=== PATIENT | female | born 1965 | race Caucasian/White ===

== ENCOUNTER 2016-12-22 12:28 | Day surgery (SDC) | payer MEDICARE, OTHER ==
[~2016-12-22] VITALS: Ht 172.7 cm; Wt 97.2 kg
[~2016-12-22 12:28] MED LIST: CALC600T11 PO; DEXL60CA2; ESZO3TAB12 PO; FLUT16SP24 NASAL; HYDR-762 PO; LINA290C PO; MULT-552 PO; NIT4 SL; OMEG-135 PO; PRAV20TA63 PO; RANI300C7 PO; SUCR1TAB PO; TRAM50TA2
[2016-12-22] MEDS ORDERED: FLUT9.9S NASAL (13:37)
[2016-12-22] MEDS ORDERED: LORA10CA PO (13:37)
[2016-12-22] MEDS ORDERED: AEROBID INH (13:42)
[2016-12-22] MEDS ORDERED: LEVO25TA59 PO (13:42)
[2016-12-22] MEDS ORDERED: VIT D3 PO (13:42)
[2016-12-22] MEDS ORDERED: CANA1000R PR (13:42)
[2016-12-22] MEDS ORDERED: HYDR25CA98 PO (13:42)
[2016-12-22 13:49] VITALS: Ht 172.7 cm; Wt 97.2 kg
[2016-12-22 16:00] VITALS: BP 148/72; PULSE 48; RESP 17
[2016-12-22] MEDS ORDERED: PROPOFOL 60 ML ONE (16:20)
[2016-12-22] MEDS ORDERED: LIDOCAINE 2% (SDV) 5 ML INJ ONE (16:20)
[2016-12-22 17:29] VITALS: BP 132/64; PULSE 60; RESP 22
--- NOTE | 2016-12-25 03:52 | GILP ---
DATE OF PROCEDURE: 12/22/2016 NAME OF PROCEDURE: Colonoscopy with polyp ablation. SURGEON: Sana Montgomery MD. BRIEF HISTORY AND INDICATIONS: The patient here for history of colonic polyps. PREMEDICATION: Monitored anesthesia care by anesthesiologist. INSTRUMENT USED: Olympus colonoscope. PREPARATION: Adequate. TECHNIQUE: After informed consent, with the patient/relatives understanding the procedure, its indic ations potential risks and complications, including but not limited to: allergic reaction, bleeding, perforation, infection, missed lesions and after all pertinent questions were answered to the patie nt's satisfaction, the patient/relatives signed the witnessed informed consent. Following this, premedication was administered slowly IV push by under careful cardiovascular and re spiratory monitoring with pulse oximetry, automatic blood pressure and line construction supervisor. Once the sedativ e effect was achieved, the patient was placed in the left lateral decubitus position, digital rectal examination was performed. The colonoscope was then introduced and advanced under visual control th roughout all segments of the colon including: the rectum, sigmoid, descending colon, splenic flexure , transverse colon, hepatic flexure, ascending colon and finally reaching the cecum which was clearl y identified by transillumination, finger indentation and the ileocecal valve. Careful examination o f the mucosa of the lower gastrointestinal tract both on insertion as well as withdrawal of the inst rument disclosed the following findings: Rectal Examination: No evidence of perirectal disease, no masses. Colonic Mucosa: The colonic mucosa is remarkable for the presence of 4 small 3 mm polyps in the rect um which were completely ablated by biopsy forceps. Two additional small polyps measuring mm were noted in the sigmoid were also ablated with biopsy forceps. The remainder of colonic mucosa is unremarkable. The ileocecal valve was clearly identified and appears unremarkable. The instrument was withdrawn reexamining the mucosa in detail. No additional abnormalities are noted with the exc eption of moderate sized internal hemorrhoids. IMPRESSION: 1. Two small polyps in the sigmoid colon, 3 mm each, ablated. 2. Four small polyps, 3 mm each in the rectum, ablated. 3. Moderate sized internal hemorrhoids. PLAN: The patient will follow up as an outpatient and Hemoccult stool testing is recommended. Revi ew pathology as recommended. Surveillance colonoscopy in 3 years is advisable pending review of [facility]. Dictated By: SANA MONTGOMERY MS/ESSENCE Conf#: [id number] DID#: [id number] CC: SANA MONTGOMERY;*[facility]*
--- NOTE | 2016-12-25 03:53 | GILP ---
DATE OF PROCEDURE: PROCEDURE: Esophagogastroduodenoscopy with biopsies. PREMEDICATION: Monitored anesthesia care by anesthesiologist. SURGEON: Connor Montgomery MD. INSTRUMENT USED: Olympus panendoscope. TECHNIQUE: After informed consent, with the patient/relatives understanding the procedure, its indic ations, potential risks and complications, including but not limited to: allergic reaction, bleeding , perforation or infection, and after all pertinent questions were answered to the patient's satisfa ction, the patient/relatives signed witnessed informed consent. Following this, premedication was administered slowly IV push under careful cardiovascular and respi ratory monitoring with pulse oximetry, automatic blood pressure and monitoring engineer. Once the sedative effect was achieved the patient was place in the left lateral decubitus, the panen doscope was introduced and advanced under visual control. 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 Four quadrant biopsies were obtained at about 37 to 38 cm. STOMACH: Upon entrance to the stomach air was insufflated. There is evidence of a distal gastrecto my, bariatric type with Kalie-en-Y anastomosis. The gastric remnant appears slightly erythematous. The anastomosis is patent and the small bowel appears unremarkable. The instrument was withdrawn re examining the mucosa in detail. No additional abnormalities are noted. PYLORUS: The pylorus appears patent and within normal limits, with no evidence of gastric outlet ob struction. DUODENUM: The duodenal mucosa was carefully examined in the duodenal bulb as well as the second por tion of the duodenum and appears unremarkable with no evidence of duodenitis, ulcer or neoplasm. The instrument was then withdrawn, the patient tolerated the procedure well and was transfer out of the endoscopy suite awake, and in good condition to continue recovery under observation. IMPRESSION: 1. 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 Four quadrant biopsies obtained. 2. Post-bariatric surgery with Kalie-en-Y anastomosis. 3. Mild gastritis, rule out Helicobacter pylori infection, biopsies obtained. PLAN: The patient will be continued on present regimen and further recommendation will depend on анна graves's clinical course as well as review of biopsies. Surveillance EGD in 1 year is recommended. Dictated By: CONNOR MONTGOMERY MS/ESSENCE Conf#: [id number] [facility]#: [id number]
== END 2016-12-22 17:56 | disposition home or self-care (01) ==
LOC: GIL 12:28
PROVIDERS: ATTEND Internal Medicine Gastroenterology
DX: Z12.11 Encounter for screening for malignant neoplasm of colon (principal); K29.30 Chronic superficial gastritis without bleeding; D12.5 Benign neoplasm of sigmoid colon; K22.70 Barrett's esophagus without dysplasia; K64.8 Other hemorrhoids; I25.10 Atherosclerotic heart disease of native coronary artery without angina pectoris; J45.909 Unspecified asthma, uncomplicated; E66.9 Obesity, unspecified; Z68.32 Body mass index [BMI] 32.0-32.9, adult; Z86.73 Personal history of transient ischemic attack (TIA), and cerebral infarction without residual deficits; F17.200 Nicotine dependence, unspecified, uncomplicated
CPT/HCPCS: 88305; 88312; 88313

== ENCOUNTER 2017-03-12 06:58 | Day surgery (SDC) | payer MEDICARE, OTHER ==
[~2017-03-12] VITALS: Ht 172.7 cm; Wt 102.0 kg
[2017-03-12] VITALS (19 sets, daily range): BP systolic 88–142; BP diastolic 51–68; PULSE 5–55; RESP 12–24; Ht 172.7 cm; Wt 102.0 kg
[~2017-03-12 06:58] MED LIST changes: +AEROBID INH; +CANA1000R PR; +FLUT9.9S NASAL; -HYDR-762 PO; +HYDR25CA98 PO; +LEVO25TA59 PO; +LORA10CA PO; -SUCR1TAB PO; -TRAM50TA2; +VIT D3 PO
[2017-03-12 08:49] LABS: BASOPHIL # 0.1 10^3/ul (0.0-0.1); BASOPHILS % 0.7 % (0.0-2.0); EOSINOPHILS # 0.1 10^3/ul (0.0-0.5); EOSINOPHILS % 1.4 % (0.0-7.0); HEMATOCRIT 33.7 % (37.0-47.0); HEMOGLOBIN 11.1 g/dl (12.0-16.0); LYMPHOCYTES # 2.2 10^3/ul (0.8-2.9); LYMPHOCYTES % 31.9 % (15.0-51.0); MEAN CORPUSCULAR HEMOGLOBIN 28.1 pg (29.0-33.0); MEAN CORPUSCULAR HGB CONC 32.9 g/dl (32.0-37.0); MEAN CORPUSCULAR VOLUME 85.3 fl (82.0-101.0); MEAN PLATELET VOLUME 9.8 fl (7.4-10.4); MONOCYTE # 0.5 10^3/ul (0.3-0.9); MONOCYTES % 6.7 % (0.0-11.0); NEUTROPHILS % 59.2 % (39.0-77.0); PLATELET COUNT 287 10^3/UL (140-415); RED BLOOD COUNT 3.95 10^6/ul (4.20-5.40); RED CELL DISTRIBUTION WIDTH 16.9 % (11.5-14.5)
[2017-03-12] MEDS ORDERED: HYDR-902 PO (08:49)
[2017-03-12] MEDS ORDERED: DESV50TA4 PO (08:49)
[2017-03-12] MEDS ORDERED: DEXL60CA2 PO (08:50)
[2017-03-12] MEDS ORDERED: NIT4 SL (08:53)
[2017-03-12] MEDS ORDERED: RANO10002 PO (08:53)
[2017-03-12] MEDS ORDERED: CHOL100062 PO (08:54)
[2017-03-12] MEDS ORDERED: UBID100C24 PO (08:55)
[2017-03-12] MEDS ORDERED: FOLI-49 PO (08:55)
[2017-03-12] MEDS ORDERED: LACT1CAP56 PO (08:57)
[2017-03-12] MEDS ORDERED: OMEG-135 PO (08:57)
[2017-03-12] MEDS ORDERED: BIOT5TAB PO (08:58)
[2017-03-12 09:01] LABS: INR 0.91; PROTIME 12.3 Sec (12.2-14.2)
[2017-03-12 09:02] LABS: PARTIAL THROMBOPLASTIN TIME 32.6 Sec (25.0-35.0)
[2017-03-12 09:04] LABS: ALBUMIN 3.9 g/dl (3.3-4.9); ALBUMIN/GLOBULIN RATIO 1.21; BILIRUBIN,INDIRECT 0.3 mg/dl (0-1.1); BILIRUBIN,TOTAL 0.3 mg/dl (0.2-1.3); CHOL/HDL RATIO 2.9 RATIO; TOTAL PROTEIN 7.1 g/dl (6.1-8.1)
[2017-03-12 09:28] LABS: CREATININE 0.79 mg/dl (0.44-1.00); POTASSIUM 4.2 mmol/L (3.5-5.1)
[2017-03-12 09:29] LABS: CALCIUM 8.7 mg/dl (8.4-10.2)
[2017-03-12] MEDS ORDERED: HEPARIN 1000 UNITS/ML 10 ML INJ ONE (09:50)
[2017-03-12] MEDS ORDERED: IODIXANOL LOCM 100 ML BTL ONE (09:50)
[2017-03-12] MEDS ORDERED: MIDAZOLAM 1 MG/ML 2 ML INJ ONE (09:50)
[2017-03-12] MEDS ORDERED: VERAPAMIL 5 MG INJ ONE (09:50)
[2017-03-12] MEDS ORDERED: LIDOCAINE 1% (MDV) 20 ML INJ ONE (09:50)
[2017-03-12] MEDS ORDERED: FENTAnyl 50 MCG/ML VIAL ONE (09:51)
[2017-03-12] MEDS ORDERED: NITROGLYCERIN (IC) 100 MCG/ML INJ ONE (09:51)
[2017-03-12] MEDS ORDERED: SOD CHLORIDE 0.9% 500 ML ONE (09:51)
[2017-03-12] MEDS ORDERED: SOD CHLORIDE 0.9% 1,000 ML IV SCH (10:51)
--- NOTE | 2017-03-12 10:53 | SIPON ---
Date/Time of Note Date/Time of Note DATE: 03/12/17 TIME: 10:51 Operative Report Preoperative Diagnosis 1.Chest pain 2. Abnormal MPI Postoperative Diagnosis 1.NON-obstructive cad 2.NL LVEF Operation/Procedure Performed 1.[facility] Surgeon: EDDIE SHRESTHA Anesthesia Type: moderate sedation Estimated Blood Loss: minimal Transfusion Required: no Specimen: none Grafts/Implants: none Complications: no EDDIE SHRESTHA Mar 12, 2017 10:52
[2017-03-12] MEDS ORDERED: ACETAMINOPHEN 325 MG TAB PO PRN (11:00)
[2017-03-12] MEDS ORDERED: ONDANSETRON 4 MG INJ IV PRN (11:00)
[2017-03-12] MEDS ORDERED: morphine 2 MG INJ IV PRN (11:00)
[2017-03-12] MEDS ORDERED: AL HYDROX/MG HYDROX/SIMETH 30 ML CUP PO PRN (11:00)
--- NOTE | 2017-03-12 11:32 | CARRPT ---
DATE OF PROCEDURE: 03/12/2017 PROCEDURE: 1. Left heart catheterization. 2. Coronary angiography. 3. Left ventriculogram. 4. Moderate conscious sedation. ATTENDING PHYSICIAN: Dr. Abner Song. REFERRING PHYSICIAN: Dr. Alan Mcfarlane. INDICATION: Chest pain refractory to medical therapy with positive stress test findings for anterior ischemia, high-risk markers for cardiovascular events. ANESTHESIA: Conscious and local. BRIEF HISTORY: Ms Chew is a 51-year-old female with history of hypertension, dyslipidemia, who initially presented to outside hospital with complaints of substernal chest pain. The patient subsequently ruled out for myocardial infarction and underwent outpatient stress test revealing anterior and inferior ischemia. Given these findings, patient placed in a setting of monitoring and continued to have chest pain; therefore, was brought to cardiac cardiac catheterization technician in order to assess the possibility of significant obstructive coronary disease as reason for the chest pain. DESCRIPTION OF PROCEDURE: After informed consent was obtained, the patient was brought to the cardiac catheterization lab where her right radial area was prepped and draped in sterile fashion. Two percent lidocaine injected into the right radial area in order to achieve adequate local anesthesia. Using the modified Seldinger technique, the radial artery was cannulated and a 6- Italian arterial sheath was placed. A 6-Italian JL 3.5 catheter was used to cath the left main coronary ostium with contrast injection. Once the left coronary artery system were obtained, JL 3.5 guidewire and a JR 4 was used to cath the right coronary artery ostium. With contrast injection views of the right coronary arterial system were obtained. The JR 4 was moved and a 6-Italian pigtail was passed down the ascending aorta and placed into the left ventricle for left ventricle end-diastolic pressure. Left end-diastolic pressure was measured using a power injector and 20 mL of contrast were injected opacifying left ventricle. Pigtail catheter then pulled back up into after aortic valve to assess for significant gradient which there was not and removed. Subsequently at this time, the patient's sheath was removed. TR band applied. Completed procedure and there were no known complications. FINDINGS: 1. Coronary angiography: Left main 4 mm, ostial 20 percent stenosis, circumflex proximally is a 3 mm vessel and tortuous with no significant focal stenosis. The LAD proximally is a 3.5 mm vessel and has no significant focus in its entirety. This mid branching diagonal sub 2 mm vessel with ostial 30 percent to 40 percent stenosis. The patient's right coronary artery proximally is a 3.5 mm vessel, has mild luminal irregularities up to 20 percent in the midportion. It is a dominant vessel and gives off a 2 mm PDA and a 2.5 mm posterolateral branch, each with no significant focal stenosis. 2. Left ventriculogram revealed a preserved left ventricular ejection fraction of approximately 60-65 percent. Left ventricular end-diastolic pressure of 20 pre and post LV gram. No significant aortic stenosis by gradient, 1+ mitral regurgitation. TOTAL FLUOROSCOPY TIME: 2.8 minutes. TOTAL CONTRAST: 50 mL. IMPRESSION: 1. Essentially normal coronary arteries. Very mild nonobstructive coronary artery disease. 2. Preserved left ventricular systolic function. 3. Mildly elevated left heart filling pressures. 4. No significant aortic stenosis by gradient. 5. 1+ mitral regurgitation. RECOMMENDATIONS: In light of previous findings, at this time: 1. Maximize medical management. 2. Aggressive diuretics. 3. The patient will be readmitted to the same day surgery center for post cath observation, continue managing symptoms, probable discharge later this afternoon. 4. Patient scheduled for outpatient follow up appointment in our office at which time we will discuss results of this procedure with the patient. The patient had no post cath complications. Dictated By: Sha Baer /aniyah/trini /Document#: [id number] CC: Alan Mcfarlane MD;*End[facility]*
[2017-03-12] MEDS ORDERED: morphine 2 MG INJ ONE (11:46)
[2017-03-12] MEDS ORDERED: ONDANSETRON 4 MG INJ ONE (11:47)
== END 2017-03-12 15:45 | disposition home or self-care (01) ==
LOC: SDS 06:58
PROVIDERS: ATTEND Internal Medicine
DX: I25.10 Atherosclerotic heart disease of native coronary artery without angina pectoris (principal); I34.0 Nonrheumatic mitral (valve) insufficiency; I10 Essential (primary) hypertension; E78.5 Hyperlipidemia, unspecified; E03.9 Hypothyroidism, unspecified; J45.909 Unspecified asthma, uncomplicated; F17.210 Nicotine dependence, cigarettes, uncomplicated
CPT/HCPCS: 80053; 80061; 84703; 85025; 85610; 85730; 93458; C1769; C1887; J1644; J2250; J2270; J2405; J3010; J7040; Q9967